=== PATIENT | male | born 1980 | race Caucasian/White ===

== ENCOUNTER 2018-07-02 12:30 | Emergency (ER) | payer SELFPAY ==
[~2018-07-02] VITALS: Ht 172.7 cm; Wt 81.8 kg
[2018-07-02 13:02] LABS: HEMATOCRIT 38.9 % (42.0-52.0); MEAN CELL VOLUME 82 fl (78-100); MEAN CORPUSCULAR HEMOGLOBIN 30 pg (27-31); MEAN CORPUSCULAR HGB CONC 36 g/dL (33-37); PLATELET COUNT 254 K/mm3 (130-400); RED BLOOD COUNT 4.72 M/mm3 (4.20-5.60); RED CELL DISTRIBUTION WIDTH 21.2 % (11.5-14.5); WHITE BLOOD COUNT 9.4 K/mm3 (4.8-10.8)
[2018-07-02 13:09] LABS: ALBUMIN 4.5 g/dL (3.5-5.0); CALCIUM 9.7 mg/dL (8.4-10.2); POTASSIUM 3.6 mmol/L (3.6-5.0); TOTAL BILIRUBIN 20.3 mg/dL (0.2-1.3); TOTAL PROTEIN 8.3 g/dL (6.3-8.2)
[2018-07-02 13:36] LABS: LYMPHOCYTE 18 % (20-51); MONOCYTE 14 % (3-10); NEUTROPHILS 66 % (42-75)
[2018-07-02 13:37] LABS: TARGET CELLS 2+
[2018-07-02 13:39] LABS: URINE APPEARANCE CLEAR; URINE COLOR AMBER
[2018-07-02 13:40] LABS: URINE GLUCOSE NEGATIVE (NEGATIVE); URINE KETONE NE (NEGATIVE); URINE PROTEIN(semi-quant) 1+ mg/dL (NEGATIVE)
[2018-07-02 13:42] LABS: URINE BLOOD NEGATIVE (NEGATIVE); URINE LEUKOCYTE ESTERASE NEGATIVE (NEGATIVE)
[2018-07-02 13:57] LABS: URINE BILIRUBIN 3+ (NEGATIVE)
[2018-07-02 13:58] LABS: URINE NITRATE NEGATIVE (NEGATIVE)
[2018-07-02 14:49] VITALS: BP 120/65
[2018-07-02 14:51] LABS: PROTHROMBIN TIME 9.6 SECONDS (9.0-12.0)
[2018-07-03 03:19] LABS: HEPATITIS C ANTIBODY Negative (Negative)
== END 2018-07-02 14:14 | disposition left against medical advice (07) ==
LOC: ED 12:30
PROVIDERS: Nurse Practitioner Primary Care
DX: K72.90 Hepatic failure, unspecified without coma (principal); K83.1 Obstruction of bile duct; F17.290 Nicotine dependence, other tobacco product, uncomplicated
CPT/HCPCS: Q9967

== ENCOUNTER → 2020-07-04 | Outpatient (CLI) | payer SELFPAY | LOC: RAD 10:54 | DX: M16.12 Unilateral primary osteoarthritis, left hip (principal); M54.5 Low back pain ==

== ENCOUNTER 2024-07-21 08:22 | Emergency (ER) | payer SELFPAY ==
[~2024-07-21] VITALS: Ht 170.2 cm; Wt 96.4 kg
[2024-07-21] MEDS ORDERED: Clindamycin 150 MG CAP PO ONE (09:15)
[2024-07-21] MEDS ORDERED: CLINDAMYCIN 300MG PO (09:16)
[2024-07-21 09:41] VITALS: BP 142/83
== END 2024-07-21 09:42 | disposition home or self-care (01) ==
LOC: ED 08:22
DX: K04.7 Periapical abscess without sinus (principal)